=== PATIENT | female | born 1960 | race Caucasian/White ===

== ENCOUNTER 2017-08-11 14:05 | Observation (INO) | payer SELFPAY ==
[~2017-08-11] VITALS: Ht 162.6 cm; Wt 67.6 kg
[~2017-08-11 14:05] MED LIST: LISINOPRIL10 MG PO; MICROBID; PANTOPRAZOLE SO20 MG PO; PAXIL10 MG PO; SYNTHROID50 MCG PO
--- OUTSIDE RECORDS SUMMARY | 2017-08-11 14:08 | XMS REPORT | Clinical Summary ---
Author Author ARLETTE [facility] Address Unknown Phone Unavailable Care Team Providers Care Network Admin Name Role Phone PCP Unavailable Allergies Active Allergy Reactions Severity Noted Date Comments Corticotropin 08/18/2016 Pain in balls of feet Influenza Virus Vaccines 08/18/2016 Numbness lower ext Adhesive Rash Low 08/18/2016 Current Medications Prescription Sig. Disp. Refills Start End Date Status Date dimethyl fumarate Take 240 mg by mouth 2 Active (TECFIDERA) 240 mg CpDR (two) times daily. carBAMazepine (CARBATROL) Take 100 mg by mouth 2 Active 100 MG 12 hr capsule (two) times daily. xeusnziseg-agidwba-ttdvfg Take 1 capsule by mouth Active ne-codeine every 4 (four) hours as (RJGPLLZDZJ-UVHMSCP-VEJUR needed for Pain. INE-CODEINE) 43-10-926-40 mg capsule cyanocobalamin 1000 MCG Take 1,000 mcg by mouth Active tablet daily. folic acid (FOLVITE) 1 MG Take 1 mg by mouth daily. Active tablet levothyroxine (SYNTHROID, Take 112 mcg by mouth Active LEVOTHROID) 112 MCG Every morning on an empty tablet stomach. lisinopril Take 20 mg by mouth Active (PRINIVIL,ZESTRIL) 20 MG daily. tablet PARoxetine (PAXIL) 40 MG Take 40 mg by mouth every Active tablet morning. promethazine (PHENERGAN) Take 25 mg by mouth every Active 25 MG tablet 6 (six) hours as needed for Nausea. cholecalciferol, vitamin Take by mouth daily. Active D3, 2,000 unit Cap ferrous sulfate (IRON, Take 325 mg by mouth Active FERROUS SULFATE,) 325 (65 daily with breakfast. FE) MG tablet dalfampridine (AMPYRA) 10 Take 10 mg by mouth every Active mg Tb12 12 (twelve) hours. fingolimod 0.5 mg Cap Take 0.5 mg by mouth Active daily. gabapentin (NEURONTIN) Take 300 mg by mouth 3 Active 300 MG capsule (three) times daily. modafinil (PROVIGIL) 200 Take 200 mg by mouth as Active MG tablet needed. sulfamethoxazole-trimetho Take 0.5 tablets by mouth Active prim (BACTRIM DS) 800-160 2 (two) times daily. mg per tablet diazePAM (VALIUM) 10 MG Take 10 mg by mouth Active tablet daily. acetaminophen-codeine Take 1 tablet by mouth Active (TYLENOL #3) 300-30 mg every 4 (four) hours as per tablet needed for Pain. pantoprazole (PROTONIX) Take 40 mg by mouth 2 Active 40 MG tablet (two) times daily. acetaminophen-codeine Take 1 tablet by mouth Active (TYLENOL #4) 300-60 mg every 4 (four) hours as per tablet needed for Pain. Active Problems Problem Noted Date HNP (herniated nucleus pulposus), lumbar 08/23/2016 Encounters Date Type Specialty Care Team Description 08/23/2016 Hospital James Galeana MD HNP (herniated nucleus Encounter pulposus), lumbar 08/23/2016 Surgery James Galeana MD LAMINECTOMY,LUMBAR W/DISCECTOMY 08/22/2016 Anesthesia Juan Perry MD Event 08/18/2016 Hospital Pre-Admission Testing James Galeana MD Pre- op testing Encounter 08/17/2016 Orders Only Kinza Agarwal PA after 08/10/2016 Social History Tobacco Use Types Packs/Day Years Used Date Never Smoker Alcohol Use Drinks/Week oz/Week Comments No Sex Assigned at Date Recorded Not on file Last Filed Vital Signs Vital Sign Reading Time Taken Blood Pressure 147/64 08/23/2016 4:19 PM CDT Pulse 75 08/23/2016 4:19 PM CDT Temperature 37.1 C (98.7 F) 08/23/2016 4:19 PM CDT Respiratory Rate 18 08/23/2016 4:19 PM CDT Oxygen Saturation 97% 08/23/2016 4:19 PM CDT Inhaled Oxygen - - Concentration Weight 61.2 kg (135 lb) 08/23/2016 6:55 AM CDT Height 162.6 cm (5' 4.02") 08/23/2016 6:55 AM CDT Body Mass Index 23.16 08/23/2016 6:55 AM CDT Plan of Treatment Not on file Implants Implanted Type Area Compounding Assistant Device Expiration Model / Identifier Date Serial / Lot Matrix Floseal Hemo W/O Ndl 10 Cement/Preet Left: MARADIAGA:BIOSCI 2017 [id number] / [id number] - [id number] ler/Adhesi Spine / Implanted: Qty: 1 on 08/23/2016 by ve Lumbar [id number] James Galeana MD Procedures Procedure Name Priority Date/Time Associated Diagnosis Comments LAMINECTOMY,LUMBAR 08/23/2016 HNP (herniated nucleus W/DISCECTOMY 9:50 AM CDT pulposus), lumbar Special Needs (MICROSCOP E, AXIS DARWIN TABLE) after 08/10/2016 Results * XR spine lumbar 1 view (08/23/2016 10:33 AM) Specimen Performing Laboratory GE RIS Narrative FINAL REPORT Lateral lumbar spine one view shows marker projecting at the L4/5 disc level. Report was called to Dr. Galeana in the operating room who was in agreement. Signed: Kay Vega MD Report Verified Date/Time:08/23/2016 10:36:35 Reading Location: [facility] Radiology Reading Room Procedure Note Interface, External Ris In - 08/23/2016 10:38 AM CDT FINAL REPORT Lateral lumbar spine one view shows marker projecting at the L4/5 disc level. Report was called to Dr. Galeana in the operating room who was in agreement. Signed: Kay Vega MD Report Verified Date/Time: 08/23/2016 10:36:35 Reading Location: [facility] Radiology Reading Room * Tissue Exam (08/23/2016 10:26 AM) Component Value Ref Range Case Report Surgical Pathology Report Case: [id number] Authorizing Provider: James Galeana MD Ordering Provider: James Galeana MD Ordering Location: [facility] PERIOPER[facility] Collected: 08/23/2016 1026 SERVICES Pathologist: Sidney Ash MD Received: 08/23/2016 1104 Specimen: Intervertebral Disc, L L3-4 DIAGNOSIS VERTEBRAL COLUMN, INTERVERTEBRAL DISC, L3-4, DISCECTOMY: FIBROCARTILAGINOUS DEGENERATION Signing Pathologist Direct Phone Line: [phone] CPT Code(s) 01602; 28136 CLINICAL HISTORY Lumbar HNP SPECIMEN SOURCE Disc L3-4 GROSS DESCRIPTION Received in saline labeled "intervertebral disc" description "L3-4" is a 5.0 x 3.5 x 0.6 cm aggregate of pink-chopra to arredondo-white rubbery, fibrillar, cartilaginous and osseous tissue. . Sap Trainer sections are submitted in cassette A1 for decalcification. KAH/DB/pl MICROSCOPIC DESCRIPTION Performed Specimen Performing Laboratory Tissue - Intervertebral [facility] Disc [address] [place] [address] * ECG 12 lead (08/18/2016 3:38 PM) Specimen Performing Laboratory GE MUSE Narrative Ventricular Rate 68 BPM Atrial Rate 68 BPM P-R Interval 166 ms QRS Duration 74 ms Q-T Interval 376 ms QTC Calculation(Bazett) 399 ms P [place] 70 degrees R [place] 45 degrees T [place] 49 degrees Normal sinus rhythm Possible Left atrial enlargement Borderline ECG No previous ECGs available Confirmed by MD HERNANDEZ J. ALBERTO ([id number]) on 08/19/2016 11:17:54 AM Procedure Note Interface, External Ris In - 08/19/2016 11:17 AM CDT Ventricular Rate 68 BPM Atrial Rate 68 BPM P-R Interval 166 ms QRS Duration 74 ms Q-T Interval 376 ms QTC Calculation(Bazett) 399 ms P [place] 70 degrees R [place] 45 degrees T [place] 49 degrees Normal sinus rhythm Possible Left atrial enlargement Borderline ECG No previous ECGs available Confirmed by MD HERNANDEZ J. ALBERTO ([id number]) on 08/19/2016 11:17:54 AM * BUN and Creatinine (08/18/2016 3:36 PM) Component Value Ref Range BUN 12 7 - 21 mg/dL Creatinine 0.87Comment: Specimen slightly hemolyzed 0.57 - 1.25 mg/dL EGFR 67Comment: ESTIMATED GFR IS NOT ACCURATE mL/min/1.73 sq m CREATININE CLEARANCE IN PREDICTING GLOMERULAR FILTRATION RATE. ESTIMATED GFR IS NOT APPLICABLE FOR DIALYSIS PATIENTS. Specimen Performing Laboratory Blood [address] [address] * Hemoglobin (08/18/2016 3:36 PM) Component Value Ref Range Hemoglobin 9.0 (L) 12.0 - 15.0 GM/DL Specimen Performing Laboratory Blood [address] [address] * Electrolytes (08/18/2016 3:36 PM) Component Value Ref Range Sodium 135 (L) 136 - 145 meq/L Potassium 4.9Comment: Specimen slightly hemolyzed 3.5 - 5.1 meq/L Chloride 100 98 - 107 meq/L CO2 27 22 - 29 meq/L Specimen Performing Laboratory Blood [address] [address] after 08/10/2016
--- OUTSIDE RECORDS SUMMARY | 2017-08-11 14:08 | XMS REPORT ---
Author [facility] Address Unknown Phone Unavailable Care Team Providers Care Guest Services Agent Name Role Phone EDWARD GALEANA Unavailable Unavailable Problems This patient has no known problems. Allergies, Adverse Reactions, Alerts This patient has no known allergies or adverse reactions. Medications This patient has no known medications. Results Test Description Test Time Test Comments Text Results Atomic Results Result Comments TISSUE EXAM 2016-08-28 12:16:00 Surgical Pathology Report Case: [id number] Authorizing Provider: Edward Galeana MD Ordering Provider: Edward Galeana MD Ordering Location: [facility] PER[facility] Collected : 08/23/2016 1026 SERVICES Pathologist: Sidney Ash MD Received: 08/23/2016 1104 Specimen: Intervertebral Disc, LL3-4 VERTEBRAL COLUMN, INTERVERTEBRAL DISC, L3-4, DISCECTOMY:FIBROCARTILAGINOUS DEGENERATION Signing Pathologist Direct Phone Line : [phone] [id number] HNPDisc L3-4Received in saline labeled "intervertebral disc" description "L3-4" is a 5.0 x 3.5 x 0.6 cm aggregate of pink-chopra to arredondo-white rubbery, fibrillar, cartilaginous and osseous tissue. . Roastmaster sections are submitted in cassette A1 for decalcification. KAH/DB /plPerformed ELECTROLYTES 2016-08-18 16:17:00 SODIUM (BEAKER) (test vxhm=624) 135 meq/L 136-145 POTASSIUM (BEAKER) (test nwmk=675) 4.9 meq/L 3.5-5.1 Specimen slightly hemolyzed CHLORIDE (BEAKER) (test srrz=852) 100 meq/L 98-107 CO2 (BEAKER) (test rxod=269) 27 meq/L 22-29 BUN AND [id number] 16:17:00* Test Item Value Reference Range Comments BLOOD UREA NITROGEN (BEAKER) (test bdcq=645) 12 mg/dL 7-21 CREATININE (BEAKER) (test ccey=716) 0.87 mg/dL 0.57-1.25 Specimen slightly hemolyzed EGFR (BEAKER) (test gsbi=1314) 67 mL/min/1.73 sq m ESTIMATED GFR IS NOT ACCURATE CREATININE CLEARANCE IN PREDICTING GLOMERULAR FILTRATION RATE. ESTIMATED GFR IS NOT APPLICABLE FOR DIALYSIS PATIENTS. [id number] 16:02:00* Test Item Value Reference Range Comments HEMOGLOBIN (BEAKER) (test cnzp=640) 9.0 GM/DL 12.0-15.0
--- OUTSIDE RECORDS SUMMARY | 2017-08-11 14:09 | XMS REPORT | Clinical Summary ---
Author Author ARLETTE [facility] Address Unknown Phone Unavailable Care Team Providers Care Skirt Trimmer Name Role Phone PCP Unavailable Allergies Active [...] MG 12 hr capsule (two) times daily. kfysajydlg-gfnudzp-jxutcf Take 1 capsule by mouth Active ne-codeine every 4 (four) hours as (TJRHBBFTFI-MKKHSLY-ESOPP needed for Pain. INE-CODEINE) 29-05-461-40 mg capsule cyanocobalamin 1000 MCG Take 1,000 [...] Not on file Implants Implanted Type Area Sonoscope Operator Device Expiration Model / Identifier Date Serial / Lot Matrix Floseal Hemo W/O Ndl 10 Cement/Preet Left: MARADIAGA:BIOSCI 2017 [id number] / [id number] - [id number] ler/Adhesi Spine / Implanted: Qty: 1 on 08/23/2016 by ve Lumbar [id number] James Galeana MD Procedures Procedure Name Priority [...] MD Report Verified Date/Time:08/23/2016 10:36:35 Reading Location: [facility] Radiology Reading Room Procedure Note Interface, External Ris In - 08/23/2016 10:38 AM CDT FINAL REPORT Lateral lumbar spine one view shows marker projecting at the L4/5 disc level. Report was called to Dr. Galeana in the operating room who was in agreement. Signed: Kay Vega MD Report Verified Date/Time: 08/23/2016 10:36:35 Reading Location: [facility] Radiology Reading Room * Tissue Exam (08/23/2016 10:26 AM) Component Value Ref Range Case Report Surgical Pathology Report Case: [id number] Authorizing Provider: James Galeana MD Ordering Provider: James Galeana MD Ordering Location: [facility] PER[facility] Collected: 08/23/2016 1026 SERVICES Pathologist: Sidney Ash MD Received: 08/23/2016 1104 Specimen: Intervertebral Disc, L L3-4 DIAGNOSIS VERTEBRAL COLUMN, INTERVERTEBRAL DISC, L3-4, DISCECTOMY: FIBROCARTILAGINOUS DEGENERATION Signing Pathologist Direct Phone Line: [phone] CPT Code(s) 43562; 99251 CLINICAL HISTORY Lumbar HNP SPECIMEN SOURCE Disc L3-4 GROSS DESCRIPTION Received in saline labeled "intervertebral disc" description "L3-4" is a 5.0 x 3.5 x 0.6 cm aggregate of pink-chopra to arredondo-white rubbery, fibrillar, cartilaginous and osseous tissue. . Enterprise Application Analyst sections are submitted in cassette A1 for decalcification. KAH/DB/pl MICROSCOPIC DESCRIPTION Performed Specimen Performing Laboratory Tissue - Intervertebral [facility] Disc [address] [place] [address] * ECG 12 lead (08/18/2016 3:38 PM) Specimen Performing Laboratory GE MUSE Narrative Ventricular Rate 68 BPM Atrial Rate 68 BPM P-R Interval 166 ms QRS Duration 74 ms Q-T Interval 376 ms QTC Calculation(Bazett) 399 ms P [place] 70 degrees R [place] 45 degrees T [place] 49 degrees Normal sinus rhythm Possible Left atrial enlargement Borderline ECG No previous ECGs available Confirmed by MD HERNANDEZ J. ALBERTO ([id number]) on 08/19/2016 11:17:54 AM Procedure Note Interface, External Ris In - 08/19/2016 11:17 AM CDT Ventricular Rate 68 BPM Atrial Rate 68 BPM P-R Interval 166 ms QRS Duration 74 ms Q-T Interval 376 ms QTC Calculation(Bazett) 399 ms P [place] 70 degrees R [place] 45 degrees T [place] 49 degrees Normal sinus rhythm Possible Left [...] FOR DIALYSIS PATIENTS. Specimen Performing Laboratory Blood [address] [address] * Hemoglobin (08/18/2016 3:36 PM) Component Value Ref Range Hemoglobin 9.0 (L) 12.0 - 15.0 GM/DL Specimen Performing Laboratory Blood [address] [address] * Electrolytes (08/18/2016 3:36 PM) Component Value Ref Range Sodium 135 (L) 136 - 145 meq/L Potassium 4.9Comment: Specimen slightly hemolyzed 3.5 - 5.1 meq/L Chloride 100 98 - 107 meq/L CO2 27 22 - 29 meq/L Specimen Performing Laboratory Blood [address] [address] after 08/10/2016
[2017-08-11 14:58] LABS: BASOPHILS % 0.4 % (0.0-1.0); EOSINOPHILS # (AUTO) 0.1 (0.0-0.4); EOSINOPHILS % 3.1 % (0.0-6.0); LYMPHOCYTES # (AUTO) 0.6 (1.0-3.2); LYMPHOCYTES % 26.5 % (18.0-39.1); MEAN CORPUSCULAR HEMOGLOBIN 21.6 pg (28-32); MEAN CORPUSCULAR VOLUME 77.2 fL (81-99); MONOCYTES # (AUTO) 0.2 (0.2-0.8); MONOCYTES % 10.6 % (4.4-11.3); NEUTROPHILS # (AUTO) 1.3 (2.1-6.9); NEUTROPHILS % 59.4 % (38.7-80.0); PLATELET COUNT 167 x10e3/uL (140-360); RED BLOOD COUNT 2.68 x10e6/uL (3.6-5.1); RED CELL DISTRIBUTION WIDTH 19.4 % (11.7-14.4)
[2017-08-11] MEDS ORDERED: ACETAMIN/BUTALBITAL/CAFFEINE TAB PO ONE (15:00)
[2017-08-11 15:05] LABS: INR 0.99; PROTHROMBIN TIME 12.3 seconds (11.9-14.5)
[2017-08-11 15:06] LABS: HEMATOCRIT 20.7 % (34.2-44.1); HEMOGLOBIN 5.8 g/dL (12.0-16.0); PARTIAL THROMBOPLASTIN TIME 24.7 seconds (23.8-35.5)
[2017-08-11] MEDS ORDERED: ACETAMINOPHEN 325 MG TAB PO STA (15:06)
[2017-08-11] MEDS ORDERED: ACETAMIN/BUTALBITAL/CAFFEINE TAB PO PRN (15:15)
[2017-08-11] MEDS ORDERED: SODIUM CHLORIDE 0.9% 250ML 250 ML IV ONE (15:15)
[2017-08-11] MEDS ORDERED: SODIUM CHLORIDE FLUSH 10 ML SYR INJ PRN (15:15)
[2017-08-11] MEDS ORDERED: ONDANSETRON HCL INJ 2 MG/ML VIAL IV PRN (15:15)
[2017-08-11 15:17] LABS: ALANINE AMINOTRANSFERASE 10 IU/L (0-55); ALBUMIN 3.3 g/dL (3.5-5.0); ALBUMIN/GLOBULIN RATIO 0.9 (0.8-2.0); ALKALINE PHOSPHATASE 110 IU/L (40-150); ANION GAP 9.6 mmol/L (8-16); BLOOD UREA NITROGEN 6 mg/dL (7-26); BUN/CREATININE RATIO 10 (6-25); CALCIUM 8.7 mg/dL (8.4-10.2); CARBON DIOXIDE 30 mmol/L (22-29); CHLORIDE 103 mmol/L (98-107); CREATINE KINASE 56 IU/L (29-168); CREATININE, SERUM 0.63 mg/dL (0.57-1.11); EST GLOMERULAR FILTRATION RATE > 60 ML/MIN (60-); GLUCOSE 86 mg/dL (74-118); POTASSIUM 3.6 mmol/L (3.5-5.1); SODIUM 139 mmol/L (136-145)
--- OUTSIDE RECORDS SUMMARY | 2017-08-11 15:28 | XMS REPORT | Clinical Summary ---
Author Author ARLETTE [facility] Address Unknown Phone Unavailable Care Team Providers Care Electrician Wiring Name Role Phone PCP Unavailable Allergies Active [...] MG 12 hr capsule (two) times daily. cknwsmehke-opkxppj-etehev Take 1 capsule by mouth Active ne-codeine every 4 (four) hours as (WCCSTDPYAX-TOEHJOZ-ZFEFK needed for Pain. INE-CODEINE) 86-08-946-40 mg capsule cyanocobalamin 1000 MCG Take 1,000 [...] Not on file Implants Implanted Type Area Rotating Equipment Specialist Device Expiration Model / Identifier Date Serial / Lot Matrix Floseal Hemo W/O Ndl 10 Cement/Preet Left: MAARDIAGA:BIOSCI 2017 [id number] / [id number] - [id number] ler/Adhesi Spine / Implanted: Qty: 1 on 08/23/2016 by ve Lumbar [id number] James Galeana MD Procedures Procedure Name Priority [...] MD Report Verified Date/Time:08/23/2016 10:36:35 Reading Location: [facility] Radiology Reading Room Procedure Note Interface, External Ris In - 08/23/2016 10:38 AM CDT FINAL REPORT Lateral lumbar spine one view shows marker projecting at the L4/5 disc level. Report was called to Dr. Galeana in the operating room who was in agreement. Signed: Kay Vega MD Report Verified Date/Time: 08/23/2016 10:36:35 Reading Location: [facility] Radiology Reading Room * Tissue Exam (08/23/2016 10:26 AM) Component Value Ref Range Case Report Surgical Pathology Report Case: [id number] Authorizing Provider: James Galeana MD Ordering Provider: James Galeana MD Ordering Location: [facility] Collected: 08/23/2016 1026 SERVICES Pathologist: Sidney Ash MD Received: 08/23/2016 1104 Specimen: Intervertebral Disc, L L3-4 DIAGNOSIS VERTEBRAL COLUMN, INTERVERTEBRAL DISC, L3-4, DISCECTOMY: FIBROCARTILAGINOUS DEGENERATION Signing Pathologist Direct Phone Line: [phone] CPT Code(s) 33879; 89363 CLINICAL HISTORY Lumbar HNP SPECIMEN SOURCE Disc L3-4 GROSS DESCRIPTION Received in saline labeled "intervertebral disc" description "L3-4" is a 5.0 x 3.5 x 0.6 cm aggregate of pink-chopra to arredondo-white rubbery, fibrillar, cartilaginous and osseous tissue. . Flooring Installer sections are submitted in cassette A1 for decalcification. KAH/DB/pl MICROSCOPIC DESCRIPTION Performed Specimen Performing Laboratory Tissue - Intervertebral [facility] [address] [place] [address] * ECG 12 lead (08/18/2016 3:38 PM) Specimen Performing Laboratory GE MUSE Narrative Ventricular Rate 68 BPM Atrial Rate 68 BPM P-R Interval 166 ms QRS Duration 74 ms Q-T Interval 376 ms QTC Calculation(Bazett) 399 ms P [place] 70 degrees R [place] 45 degrees T [place] 49 degrees Normal sinus rhythm Possible Left atrial enlargement Borderline ECG No previous ECGs available Confirmed by MD HERNANDEZ J. ALBERTO ([id number]) on 08/19/2016 11:17:54 AM Procedure Note Interface, External Ris In - 08/19/2016 11:17 AM CDT Ventricular Rate 68 BPM Atrial Rate 68 BPM P-R Interval 166 ms QRS Duration 74 ms Q-T Interval 376 ms QTC Calculation(Bazett) 399 ms P [place] 70 degrees R [place] 45 degrees T [place] 49 degrees Normal sinus rhythm Possible Left [...] FOR DIALYSIS PATIENTS. Specimen Performing Laboratory Blood [address] [address] * Hemoglobin (08/18/2016 3:36 PM) Component Value Ref Range Hemoglobin 9.0 (L) 12.0 - 15.0 GM/DL Specimen Performing Laboratory Blood [address] [address] * Electrolytes (08/18/2016 3:36 PM) Component Value Ref Range Sodium 135 (L) 136 - 145 meq/L Potassium 4.9Comment: Specimen slightly hemolyzed 3.5 - 5.1 meq/L Chloride 100 98 - 107 meq/L CO2 27 22 - 29 meq/L Specimen Performing Laboratory Blood [address] [address] after 08/10/2016
[2017-08-11 15:48] LABS: ANISOCYTOSIS SLIGHT; HYPOCHROMASIA SLIGHT; MICROCYTOSIS SLIGHT; PLATELET ESTIMATE ADEQUATE; PLATELET MORPHOLOGY COMMENT FEW LARGE; RBC MORPHOLOGY COMMENT NORMAL
[2017-08-11 16:38] VITALS: BP 179/79
[2017-08-11 16:39] LABS: BILIRUBIN,URINE NEGATIVE (NEGATIVE); CLARITY,URINE HAZY (CLEAR); COLOR,URINE YELLOW (YELLOW); KETONES,URINE NEGATIVE (NEGATIVE); LEUKOCYTE ESTERASE ,URINE 1+ (NEGATIVE); NITRITE,URINE NEGATIVE (NEGATIVE); PROTEIN,URINE DIPSTICK NEGATIVE (NEGATIVE); URINE UROBILINOGEN 0.2 mg/dL (0.2 - 1)
[2017-08-11 16:43] VITALS: BP 179/79
[2017-08-11 16:50] LABS: BACTERIA,URINE FEW /HPF; RBC,URINE 0-5 /HPF (0-5)
[2017-08-11 16:51] LABS: EPITHELIAL CELLS,URINE MANY /LPF
[2017-08-11] MEDS ORDERED: NORCO 7.5-3251 EACH PO (17:35)
[2017-08-11] MEDS ORDERED: PROVIGIL200 MG (17:35)
[2017-08-11] MEDS ORDERED: CARBAMAZEPINE200 MG PO (17:35)
[2017-08-11] MEDS ORDERED: FOLIC ACID1 MG PO (17:35)
[2017-08-11] MEDS ORDERED: BUTALB-CAFF-AC1 EACH (17:35)
[2017-08-11] MEDS ORDERED: LISINOPRIL10 MG PO (17:35)
[2017-08-11] MEDS ORDERED: PAXIL40 MG (17:35)
[2017-08-11] MEDS ORDERED: GABAPENTIN300 MG PO (17:35)
[2017-08-11] MEDS ORDERED: MACROBID 100 M100 MG (17:35)
[2017-08-11] MEDS ORDERED: GILENYA0.5 MG (17:35)
[2017-08-11] MEDS ORDERED: ASPIR 8181 MG (17:35)
[2017-08-11] MEDS ORDERED: AMPYRA10 MG (17:35)
[2017-08-11] MEDS ORDERED: IRON159 MG (17:35)
[2017-08-11] MEDS ORDERED: SYNTHROID112 MCG PO (17:35)
[2017-08-11] MEDS ORDERED: PROMETHAZINE HC25 M1 PO (17:35)
[2017-08-11] MEDS ORDERED: VITAMIN B-121000 MC2 (17:35)
[2017-08-11] MEDS ORDERED: CAFFEINE PO PRN (17:45)
[2017-08-11] MEDS ORDERED: CODEINE PO PRN (17:45)
[2017-08-11] MEDS ORDERED: BUTALBITAL PO PRN (17:45)
[2017-08-11] MEDS ORDERED: ASPIRIN PO PRN (17:45)
[2017-08-11] MEDS: HYDROCODONE/APAP 7.5MG-325MG 1 EA TAB PO SCH (19:36)
[2017-08-11 19:49] VITALS: BP 179/79
[2017-08-11] MEDS ORDERED: SODIUM CHLORIDE 0.9% 250ML 250 ML ONE (19:57)
[2017-08-11 20:00] VITALS: BP 178/74
[2017-08-11] MEDS ORDERED: ACETAMINOPHEN 325 MG TAB PO SCH (20:00)
[2017-08-11] MEDS ORDERED: CLONIDINE HCL 0.1 MG TAB PO PRN (20:45)
[2017-08-11 21:00] VITALS: BP 178/74
[2017-08-11] MEDS: PROMETHAZINE HCL 25 MG TAB PO SCH (21:00)
[2017-08-11] MEDS: GABAPENTIN 300 MG CAP PO SCH (21:00)
[2017-08-11] MEDS: CARBAMAZEPINE 200 MG TAB PO SCH (21:00)
[2017-08-12] VITALS: BP 124/57
[2017-08-12 04:00] VITALS: BP 127/57
[2017-08-12] MEDS ORDERED: LEVOTHYROXINE SODIUM 112 MCG TAB PO SCH (06:00)
[2017-08-12 07:13] LABS: BASOPHILS % 0.9 % (0.0-1.0); EOSINOPHILS # (AUTO) 0.1 (0.0-0.4); EOSINOPHILS % 3.3 % (0.0-6.0); HEMATOCRIT 30.9 % (34.2-44.1); HEMOGLOBIN 9.5 g/dL (12.0-16.0); LYMPHOCYTES # (AUTO) 0.6 (1.0-3.2); MEAN CORPUSCULAR HEMOGLOBIN 24.4 pg (28-32); MEAN CORPUSCULAR HGB CONC 30.7 g/dL (31-35); MEAN CORPUSCULAR VOLUME 79.2 fL (81-99); MONOCYTES # (AUTO) 0.3 (0.2-0.8); MONOCYTES % 15.4 % (4.4-11.3); NEUTROPHILS # (AUTO) 1.1 (2.1-6.9); NEUTROPHILS % 51.4 % (38.7-80.0); PLATELET COUNT 136 x10e3/uL (140-360); RED CELL DISTRIBUTION WIDTH 18.1 % (11.7-14.4)
[2017-08-12 07:48] VITALS: BP 171/71
[2017-08-12] MEDS: HYDROCODONE/APAP 7.5MG-325MG 1 EA TAB PO SCH (08:06)
[2017-08-12] MEDS: GABAPENTIN 300 MG CAP PO SCH (09:00)
[2017-08-12] MEDS ORDERED: AMPYRA 10 MG PO SCH (09:00)
[2017-08-12] MEDS: PROMETHAZINE HCL 25 MG TAB PO SCH (09:00)
[2017-08-12] MEDS ORDERED: PROVIGIL 200 MG PO SCH (09:00)
[2017-08-12] MEDS ORDERED: FOLIC ACID 1 MG TAB PO SCH (09:00)
[2017-08-12] MEDS ORDERED: CYANOCOBALAMIN 1,000 MCG TAB PO SCH (09:00)
[2017-08-12] MEDS ORDERED: NITROFURANTOIN MACROCRYSTALS 100 MG CAP PO SCH (09:00)
[2017-08-12] MEDS ORDERED: FERROUS SULFATE 325 MG TAB PO SCH (09:00)
[2017-08-12] MEDS ORDERED: FERROUS SULFATE DRIED 65 MG PO SCH (09:00)
[2017-08-12] MEDS ORDERED: GILENYA 0.5 MG PO SCH (09:00)
[2017-08-12] MEDS ORDERED: ASPIRIN 81 MG CHEW TAB PO SCH (09:00)
[2017-08-12] MEDS ORDERED: PAROXETINE HCL 20 MG TAB PO SCH (09:00)
[2017-08-12] MEDS: CARBAMAZEPINE 200 MG TAB PO SCH (09:00)
[2017-08-12] MEDS ORDERED: FERROUS SULFATE DRIED 65 MG SCH (09:00)
[2017-08-12] MEDS ORDERED: LISINOPRIL 10 MG TAB PO SCH (09:00)
[2017-08-12 09:03] VITALS: BP 146/72
== END 2017-08-12 10:22 | disposition home or self-care (01) ==
LOC: ER 14:06 → ERHOLD 15:25 → IMCU 15:42
PROVIDERS: ADMIT Internal Medicine; ATTEND Internal Medicine
DX: D64.9 Anemia, unspecified (principal); I10 Essential (primary) hypertension; G35 Multiple sclerosis
CPT/HCPCS: 36430; P9016; 36415; 80053; 81001; 82270; 82550; 82553; 84484; 85025; 85610; 85730; 86850; 86900; 86920; 99284; G0378; J7050

== ENCOUNTER 2018-09-03 12:19 | Observation (INO) | payer OTHER ==
[~2018-09-03] VITALS: Ht 162.6 cm; Wt 56.7 kg
[~2018-09-03 12:19] MED LIST changes: +AMPYRA10 MG; +ASPIR 8181 MG; +BUTALB-CAFF-AC1 EACH; +CARBAMAZEPINE200 MG PO; +FOLIC ACID1 MG PO; +GABAPENTIN300 MG PO; +GILENYA0.5 MG; +IRON159 MG; +MACROBID 100 M100 MG; +NORCO 7.5-3251 EACH PO; +PAXIL40 MG; +PROMETHAZINE HC25 M1 PO; +PROVIGIL200 MG; +SYNTHROID112 MCG PO; +VITAMIN B-121000 MC2
--- OUTSIDE RECORDS SUMMARY | 2018-09-03 12:22 | XMS REPORT | Clinical Summary ---
Author Author ARLETTE [facility] Address Unknown Phone Unavailable Care Team Providers Care Straightening Machine Feeder Name Role Phone Dionne Liang PCP Allergies Comments Active Allergy Reactions Severity Noted Date Adhesive Rash Low 08/18/2016 Pain in balls of feet Corticotropin 08/18/2016 Numbness lower ext Influenza Virus Vaccines 08/18/2016 Medications End Date Status Medication Sig Dispensed Refills Start Date Active dimethyl fumarate Take 240 mg 0 (TECFIDERA) 240 mg CpDR by mouth 2 (two) times daily. Active carBAMazepine (CARBATROL) Take 100 mg 0 100 MG 12 hr capsule by mouth 2 (two) times daily. Active yiaebewnnc-xvccfsi-deoflp Take 1 0 ne-codeine capsule by (IJFKFQQWDX-SGRIHYB-IWPLW mouth every 4 INE-CODEINE) 87-95-078-40 (four) hours mg capsule as needed for Pain. Active cyanocobalamin 1000 MCG Take 1,000 0 tablet mcg by mouth daily. Active folic acid (FOLVITE) 1 MG Take 1 mg by 0 tablet mouth daily. Active levothyroxine (SYNTHROID, Take 112 mcg 0 LEVOTHROID) 112 MCG by mouth tablet Every morning on an empty stomach. Active lisinopril Take 20 mg by 0 (PRINIVIL,ZESTRIL) 20 MG mouth daily. tablet Active PARoxetine (PAXIL) 40 MG Take 40 mg by 0 tablet mouth every morning. Active promethazine (PHENERGAN) Take 25 mg by 0 25 MG tablet mouth every 6 (six) hours as needed for Nausea. Active cholecalciferol, vitamin Take by mouth 0 D3, 2,000 unit Cap daily. Active ferrous sulfate (IRON, Take 325 mg 0 FERROUS SULFATE,) 325 (65 by mouth FE) MG tablet daily with breakfast. Active dalfampridine (AMPYRA) 10 Take 10 mg by 0 mg Tb12 mouth every 12 (twelve) hours. Active fingolimod 0.5 mg Cap Take 0.5 mg 0 by mouth daily. Active gabapentin (NEURONTIN) Take 300 mg 0 300 MG capsule by mouth 3 (three) times daily. Active modafinil (PROVIGIL) 200 Take 200 mg 0 MG tablet by mouth as needed. Active sulfamethoxazole-trimetho Take 0.5 0 prim (BACTRIM DS) 800-160 tablets by mg per tablet mouth 2 (two) times daily. Active diazePAM (VALIUM) 10 MG Take 10 mg by 0 tablet mouth daily. Active acetaminophen-codeine Take 1 tablet 0 (TYLENOL #3) 300-30 mg by mouth per tablet every 4 (four) hours as needed for Pain. Active pantoprazole (PROTONIX) Take 40 mg by 0 40 MG tablet mouth 2 (two) times daily. Active acetaminophen-codeine Take 1 tablet 0 (TYLENOL #4) 300-60 mg by mouth per tablet every 4 (four) hours as needed for Pain. Active Problems Problem Noted Date HNP (herniated nucleus pulposus), lumbar 08/23/2016 Social History Date Tobacco Use Types Packs/Day Years Used Never Smoker Alcohol Use Drinks/Week oz/Week Comments No Sex Assigned at Date Recorded Not on file Industry Job Start Date Occupation Not on file Not on file Not on file Travel End Travel History Travel Start No recent travel history available. Last Filed Vital Signs Not on file Plan of Treatment Not on file Implants Device Identifier Shelf Expiration Date Model / Serial / Lot Implanted Type Area Manufactur er 10/27/2017 [id number] / / [id number] Matrix Floseal Hemo W/O Ndl 10 Cement/Preet Left: Spine MARADIAGA:BIO [id number] - [id number] ler/Adhesi Lumbar SCI Implanted: Qty: 1 on 08/23/2016 by James Moreau MD Results Not on fileafter 09/02/2017 Insurance Payer Benefit Subscriber ID Type Phone Address Plan / Group [facility] xxxxxxxxx HMO/POS CARE POS SELECT CHOICE Advance Directives For more information, please contact: [facility] [address] [place] [address] Date Inactivated Comments Code Status Date Activated 08/23/2016 7:52 PM Full Code 08/23/2016 7:38 AM This code status was determined by: Patient
--- NOTE | 2018-09-03 13:14 | NUR ---
PATIENT TO ROOM 7
--- NOTE | 2018-09-03 13:20 | NUR ---
PATIENT STRAIGHT CATH'D UNABLE TO OBTAIN ANY URINE
[2018-09-03] MEDS ORDERED: SODIUM CHLORIDE 0.9% 1000ML 1,000 ML IV STA (13:42)
[2018-09-03] MEDS ORDERED: CEFTRIAXONE SOD 1 GM/NS 50 ML 50 ML IV ONE (13:45)
[2018-09-03 14:31] LABS: BASOPHILS % 0.9 % (0.0-1.0); EOSINOPHILS # (AUTO) 0.1 (0.0-0.4); EOSINOPHILS % 2.5 % (0.0-6.0); HEMATOCRIT 39.5 % (34.2-44.1); HEMOGLOBIN 13.4 g/dL (12.0-16.0); LYMPHOCYTES # (AUTO) 0.9 (1.0-3.2); LYMPHOCYTES % 27.6 % (18.0-39.1); MEAN CORPUSCULAR HEMOGLOBIN 33.9 pg (28-32); MEAN CORPUSCULAR HGB CONC 33.9 g/dL (31-35); MONOCYTES # (AUTO) 0.4 (0.2-0.8); MONOCYTES % 12.4 % (4.4-11.3); NEUTROPHILS # (AUTO) 1.8 (2.1-6.9); NEUTROPHILS % 56.3 % (38.7-80.0); PLATELET COUNT 194 x10e3/uL (140-360); RED BLOOD COUNT 3.95 x10e6/uL (3.6-5.1); RED CELL DISTRIBUTION WIDTH 11.9 % (11.7-14.4)
[2018-09-03 14:44] LABS: ANION GAP 15.5 mmol/L (8-16); CALCIUM 9.7 mg/dL (8.4-10.2); CREATININE, SERUM 1.07 mg/dL (0.57-1.11); POTASSIUM 4.5 mmol/L (3.5-5.1)
[2018-09-03] MEDS ORDERED: KETOROLAC TROMETHAMINE 30 MG/ML VIAL IV NR (14:45)
[2018-09-03 15:24] LABS: CLARITY,URINE SL CLOUDY (CLEAR); COLOR,URINE YELLOW (YELLOW); KETONES,URINE NEGATIVE (NEGATIVE); LEUKOCYTE ESTERASE ,URINE NEGATIVE (NEGATIVE); NITRITE,URINE POSITIVE (NEGATIVE); PROTEIN,URINE DIPSTICK TRACE (NEGATIVE); URINE UROBILINOGEN 1 mg/dL (0.2 - 1)
[2018-09-03 15:25] LABS: BILIRUBIN,URINE NEGATIVE (NEGATIVE)
[2018-09-03] MEDS ORDERED: ONDANSETRON HCL INJ 2MG/ML 2ML 2 MG/ML VIAL IV STA (16:21)
[2018-09-03] MEDS ORDERED: MORPHINE SULFATE 2 MG/ML SYR 1ML IV STA (16:21)
[2018-09-03] MEDS ORDERED: MORPHINE SULFATE INJ 4 MG/ML INJ 1ML IV NR (16:30)
--- NOTE | 2018-09-03 17:16 | Diagnostic Imaging Report ---
EXAM: CT Abdomen and Pelvis WITH contrast INDICATION: Severe pain with UTI. COMPARISON: None. TECHNIQUE: Abdomen and pelvis were scanned utilizing a multidetector helical scanner from the lung base to the pubic symphysis after administration of IV contrast. Coronal and sagittal reformations were obtained. Routine protocol was performed. Scan was performed when during portal venous phase. IV CONTRAST: 100 cc Isovue-300 ORAL CONTRAST: Water RADIATION DOSE: Total DLP: 187.77 mGy*cm Estimated effective dose: (DLP x 0.015 x size factor) mSv COMPLICATIONS: None FINDINGS: LINES and TUBES: None. LOWER THORAX: Bibasilar dependent atelectasis. HEPATOBILIARY: No focal hepatic lesions. The common bile duct is prominent measuring 1.2 cm in the pancreatic head region on image 30 series 2. Mild central intrahepatic biliary dilatation. GALLBLADDER: No radio-opaque stones or sludge. No wall thickening. SPLEEN: No splenomegaly. PANCREAS: No focal masses or ductal dilatation. ADRENALS: No adrenal nodules KIDNEYS/URETERS: Kidneys enhance symmetrically. No hydronephrosis. 3.1 cm cyst in the lateral lower pole of the right kidney on image 43. No stones. GI TRACT: No abnormal distention, wall thickening, or evidence of bowel obstruction. Appendix is normal. PELVIC ORGANS/BLADDER: Unremarkable. LYMPH NODES: No lymphadenopathy. VESSELS: Atherosclerotic calcifications of the aorta and iliac arteries. PERITONEUM / RETROPERITONEUM: No free air or fluid. BONES: Avascular necrosis of the hips bilaterally. SOFT TISSUES: Unremarkable. IMPRESSION: 1. Diffuse dilatation of the common bile duct and mild central intrahepatic biliary dilatation of uncertain etiology, however, possible pathology in the distal CBD or ampullary region. Correlate clinically. This could be further evaluated with MRCP. Signed by: Dr. Latoya Perez M.D. on 09/03/2018 5:13 PM
--- OUTSIDE RECORDS SUMMARY | 2018-09-03 18:48 | XMS REPORT | Clinical Summary ---
Author Author ARLETTE [facility] Address Unknown Phone Unavailable Care Team Providers Care Market Manager Name Role Phone Dionne Liang PCP Allergies [...] by mouth 2 (two) times daily. Active cnqiqikcmk-dshqzlv-fgysnq Take 1 0 ne-codeine capsule by (CQQJGRKWKV-JNNXDSD-XJBNZ mouth every 4 INE-CODEINE) 23-30-549-40 (four) hours mg capsule as needed for [...] Lot Implanted Type Area Manufactur er 10/27/2017 [id number] / / [id number] Matrix Floseal Hemo W/O Ndl 10 Cement/Preet Left: Spine MARADIAGA:BIO [id number] - [id number] ler/Adhesi Lumbar SCI Implanted: Qty: 1 on 08/23/2016 by James Moreau MD Results Not on fileafter 09/02/2017 Insurance Payer Benefit Subscriber ID Type Phone Address Plan / Group [facility] xxxxxxxxx HMO/POS CARE POS SELECT CHOICE Advance Directives For more information, please contact: [facility] [address] [place] [address] Date Inactivated Comments Code Status Date Activated 08/23/2016 7:52 PM Full Code 08/23/2016 7:38 AM This code status was determined by: Patient
[2018-09-03] MEDS ORDERED: IOPAMIDOL 370 MG/ML 200 ML INFUS..BTL INJ ONE (19:12)
[2018-09-03] MEDS ORDERED: SODIUM CHLORIDE 0.9% 50ML 50 ML ONE (19:12)
[2018-09-03 20:00] VITALS: BP 130/81
[2018-09-03] MEDS: ONDANSETRON HCL INJ 2MG/ML 2ML 2 MG/ML VIAL IV PRN (20:51)
[2018-09-03] MEDS: HYDROMORPHONE 2MG/ML 2 MG/ML ML IV PRN (20:51)
[2018-09-03] MEDS: SODIUM CHLORIDE 0.9% 1000ML 1,000 ML IV SCH (20:57)
[2018-09-03] MEDS: METHYLPREDNISOLONE SOD SUCC 500 MG in SODIUM CHLORIDE 0.9% 100 ML IV SCH (20:57)
[2018-09-03 21:05] VITALS: BP 130/81
--- NOTE | 2018-09-03 22:46 | NUR ---
Patient arrived to floor at about 2044 from ER. The patient is A/O x4 with the vital signs with the normal parameter. at beside providing patient's history. The patient c/o of abdomen and lower back pain. The patient has a 25 years history of MS and is a high risk for fall. Bed alarm set on, non-skid on, bedside commode next to bed, bed set on low with side rails up x2. Patient is on clear liquid and will have MRCP tomorrow. Monitor patient's pain and fall safety.
[2018-09-03] MEDS: PIPER-TAZ 3.375 GM / NS 50ML IV SCH (23:19)
[2018-09-04] VITALS (7 sets, daily range): BP systolic 94–152; BP diastolic 53–71
[2018-09-04] MEDS: HYDROMORPHONE 2MG/ML 2 MG/ML ML IV PRN ×6 (00:48→23:30)
[2018-09-04] MEDS: ONDANSETRON HCL INJ 2MG/ML 2ML 2 MG/ML VIAL IV PRN ×3 (00:48→11:05)
[2018-09-04] MEDS: PIPER-TAZ 3.375 GM / NS 50ML IV SCH ×4 (05:14→23:15)
[2018-09-04] MEDS: SODIUM CHLORIDE 0.9% 1000ML 1,000 ML IV SCH ×3 (05:14→17:01)
[2018-09-04] MEDS ORDERED: BISACODYL 5 MG TAB EC PO PRN ×2 (07:00→07:15)
[2018-09-04 07:13] LABS: HEMATOCRIT 37.1 % (34.2-44.1); HEMOGLOBIN 11.8 g/dL (12.0-16.0); LYMPHOCYTES # (AUTO) 0.5 (1.0-3.2); MEAN CORPUSCULAR HGB CONC 31.8 g/dL (31-35); MEAN CORPUSCULAR VOLUME 103.6 fL (81-99); MONOCYTES % 1.6 % (4.4-11.3); NEUTROPHILS % 79.4 % (38.7-80.0); PLATELET COUNT 167 x10e3/uL (140-360); RED BLOOD COUNT 3.58 x10e6/uL (3.6-5.1); RED CELL DISTRIBUTION WIDTH 11.8 % (11.7-14.4)
[2018-09-04 07:28] LABS: ALANINE AMINOTRANSFERASE 6 IU/L (0-55); ALBUMIN 3.7 g/dL (3.5-5.0); ALBUMIN/GLOBULIN RATIO 1.3 (0.8-2.0); ALKALINE PHOSPHATASE 88 IU/L (40-150); AMYLASE 53 U/L (25-125); ANION GAP 12.7 mmol/L (8-16); BLOOD UREA NITROGEN 8 mg/dL (7-26); BUN/CREATININE RATIO 10 (6-25); CALCIUM 9.2 mg/dL (8.4-10.2); CARBON DIOXIDE 26 mmol/L (22-29); CHLORIDE 104 mmol/L (98-107); CREATININE, SERUM 0.83 mg/dL (0.57-1.11); EST GLOMERULAR FILTRATION RATE > 60 ML/MIN (60-); GLUCOSE 167 mg/dL (74-118); LIPASE 17 U/L (8-78); POTASSIUM 4.7 mmol/L (3.5-5.1); SODIUM 138 mmol/L (136-145)
--- NOTE | 2018-09-04 07:45 | NUR ---
RECEIVED PATIENT AWAKE SITTING UP IN BED NO SIGNS OF DISTRESS AT THIS TIME. CALL LIGHT IN REACH, BED LOW, WHEELS LOCKED, SIDE RAILS X2. WILL CONTINUE TO MONITOR.
[2018-09-04] MEDS ORDERED: METHYLPREDNISOLONE SOD SUCC 1,000 MG/8 ML VIAL IV SCH (09:00)
--- NOTE | 2018-09-04 11:00 | NUR ---
PATIENT A/O X3, EVEN RESPIRATIONS ON RA. BOWEL SOUNDS ACTIVE. SKIN INTACT, NO EDEMA. LEFT WRIST 20 GAUGE IV WITH NS @ 125 CC/HR. PATIENT AMBULATES WITH WALKER. ASSISTED PATIENT TO TOILET THIS MORNING. DILAUDID GIVEN FOR ABDOMINAL PAIN. VITAL SIGNS STABLE. BED LOW, WHEELS LOCKED, SIDE RAILS UP X2, CALL LIGHT IN REACH WILL CONTINUE TO MONITOR.
[2018-09-04] MEDS ORDERED: ONDANSETRON HCL 4 MG ORAL DISINTEGRATING TAB PO PRN (12:00)
--- NOTE | 2018-09-04 12:45 | History and Physical ---
REASON FOR ADMISSION: This patient is a 57-year-old female, who comes in with abdominal pain. HISTORY OF PRESENTING ILLNESS: Ms. Anna Pak with a history of multiple sclerosis, history of trigeminal neuralgia, was in usual state of health until the patient started to have abdominal pain about three months ago. The patient started with pain that was intractable last night, was seen by the primary care physician, Dr. Truong, urine was positive and the patient was started on Macrobid 100 mg twice a day, which was upped from the 50 mg which she takes usually. The patient abdominal pain was intractable, yesterday 02/06, mid abdomen and radiating to the back, came into the emergency room, was found to have dilated CBD. The patient is admitted for, 1. Abdominal pain. 2. CBD dilatation and pain. PAST MEDICAL HISTORY: History of vitamin B12 deficiency, history of multiple sclerosis, history of chronic pain syndrome, history of hypothyroidism, history of hypertension, history of chronic UTIs, history of depression, and history of chronic tension headaches. MEDICINES: Medications she takes at home are aspirin 81 mg daily, Fiorinal with Codeine for headaches, carbamazepine 200 mg 3 times a day for trigeminal neuralgia, vitamin B12 1000 mcg every day, ferrous sulfate 159 for iron-deficiency anemia, folic acid 1 mg daily, gabapentin 300 mg 3 times a day, hydrocodone 7.5/325 three times a day, levothyroxine 112 mcg daily, lisinopril 20 mg daily, modafinil 200 mg daily, nitrofurantoin at this time 100 mg twice a day, paroxetine 40 mg daily, and promethazine 25 mg 3 times a day p.r.n. PAST SURGICAL HISTORY: Includes history of shoulder surgery, back surgery, and also abdominal surgery of cyst removal from the ovary. SOCIAL HISTORY: No EtOH. No IV drug abuse. No history of smoking. ALLERGIES: NO DRUG ALLERGIES. REVIEW OF SYSTEMS: Negative for chest pain. No shortness of breath. Positive for nausea. No cough. Positive for constipation. No diarrhea. No diplopia. No blurry vision. No hematochezia. No hematemesis. Positive for abdominal pain. No jaundice noted by the patient or icterus noted by the patient. No rectal bleeding. Positive for fatigue. PHYSICAL EXAMINATION: VITAL SIGNS: Temperature is 97.1, pulse of 101, respirations of 18, blood pressure is 127/63, pulse oximetry of 92% on room air. HEENT: Normocephalic, atraumatic. There is no icterus present. CVS: S1, S2 normal. Regular rate and rhythm. ABDOMEN: Tender in the periumbilical area. Positive for backed up stool. EXTREMITIES: No clubbing, no cyanosis and/or no edema. LABORATORY VALUES: The patient's initial white count is 3.23, MCV 100, MCHC 33.9, no left shift present. Chemistry shows sodium of 134, potassium of 4.5, BUN was 11, creatinine of 1.079 with an estimated GFR of 52. Urine blood positive for nitrite. MICROBIOLOGY: Urine cultures are pending. IMAGING STUDIES: Abdominal CT shows diffuse dilatation of the common bile duct and mild central intrahepatic biliary dilatation of uncertain etiology, MRCP suggested. ASSESSMENT: 1. A 57-year-old lady with abdominal pain. 2. Dilatation of common bile duct. 3. History of multiple sclerosis. 4. Hypertension. 5. Hyperlipidemia. 6. Chronic pain syndrome. 7. Constipation. 8. Trigeminal neuralgia history. PLAN: 1. Plan is to do an MRCP today. If the MRCP is positive, we will need ERCP, we will recommend to GI number. 2. Check her comprehensive metabolic panel and total bilirubin levels to see for hepatic problems. 3. Continue monitoring the patient. IV fluids will be done. 4. We will give Dulcolax q.6 hours until constipation is relieved. Further recommendation and clinical course, the patient will probably need ERCP depending on the clinical course. MD DREA Montes De Oca/MODL /[id number]
--- NOTE | 2018-09-04 15:14 | NUR ---
Nutrition Screen Note RD Recommendation for Physician: -Rec ADAT to low fat diet Plan of Care: RD following, monitoring for tolerance and adequacy Nutrition reason for involvement: Nutrition Risk Trigger MST Primary Diagnose(s): Dilatation of common bile duct PMH: History of vitamin B12 deficiency, history of multiple sclerosis, history of chronic pain syndrome, history of hypothyroidism, history of hypertension, history of chronic UTIs, history of depression, and history of chronic tension headaches. Ht: 64in Wt: 125lb BMI: 21.5kg/m2 IBW: 120lb RD Assessment: (09/04) Chart reviewed. Labs and meds reviewed. 57yo F, who was admitted for abdominal pain started about 3 months ago. Abd/pel CT showed diffuse dilatation of the common bile duct and mild central intrahepatic biliary dilatation. Pending MRCP result. Visited pt in the room. Zofran was ordered for nausea. No vomiting episode reported. Dulcolax was also ordered for constipation x 3days. GLUCOSE AND SYRUP WEIGHER, pt had ~10lbs weight loss with UBW at ~135lbs and poor PO intake for 3 months. No physical sign of muscle/fat loss upon NFPA. Pt tolerated clear liquid diet for breakfast today. Will continue to monitor and follow. Current Diet: clear liquid Malnutrition Evaluation (09/04/2018) The patient does not meet criteria for a specified degree of malnutrition at this time. Will re-evaluate at follow-up as appropriate. Energy intake: <75% of estimated energy requirements for >3 months Weight loss: <7.5% in 3 months (Acute), not meeting criteria Fat loss: None upon NFPA Muscle loss: None upon NFPA Supporting Evidence: Fluid accumulation: N/A Functional Status: no changes Diet Education Needs Assessment: Diet education indicated, pt is not appropriate at this time. Nutrition Care Level: low Signed: Veronica Fregoso, MS, RD, LD
--- NOTE | 2018-09-04 17:10 | Diagnostic Imaging Report ---
EXAM: MRI of the abdomen without contrast with MRCP INDICATION: Biliary dilatation on CT examination. Concern for common duct stone or lesion of the ampulla. COMPARISON: Correlation with CT abdomen pelvis dated 09/03/2018. TECHNIQUE: Multiplanar and multisequence imaging was performed of the abdomen. T1 and T2-weighted images were obtained with and without contrast. T1-weighted in and eht-hv-qwhea scans were obtained. M.R.C.P. technique: Multiplanar, multisequence MRCP was performed, with sequences including coronal turbo spin-echo T1-weighted scans, H MRCP scans, coronal spin, coronal MPR 2, [facility], [facility] MRCP [facility]. Discussion: Examination somewhat limited due to images and interpretation by breathing motion artifact and lack of contrast enhancement. LOWER THORAX: Bibasilar dependent atelectasis. HEPATOBILIARY: No signal abnormality on the in and out of phase scans. No focal hepatic lesions. Minimal central intrahepatic biliary dilatation. The common bile duct is diffusely low dilated up to 1.2 cm, and tapers progressively distally, without filling defects or evidence of stricture. GALLBLADDER: No radio-opaque stones or sludge. No wall thickening. SPLEEN: No splenomegaly. PANCREAS: No focal masses. Mild prominence of the main pancreatic duct up to 5 mm in the pancreatic body. ADRENALS: No adrenal nodules KIDNEYS/URETERS: Kidneys enhance symmetrically. No hydronephrosis. 2.7 cm cyst in the lower pole of the right kidney. No stones. GI TRACT: No abnormal distention, wall thickening, or evidence of bowel obstruction. LYMPH NODES: No lymphadenopathy. VESSELS: Unremarkable. PERITONEUM / RETROPERITONEUM: No free air or fluid. BONES: Unremarkable. SOFT TISSUES: Unremarkable. IMPRESSION: Mild to moderate diffuse dilatation of the common bile duct without evidence of choledocholithiasis or stricture. No definite ampullary lesion identified, however, evaluation somewhat limited due to the lack of contrast motion artifact. Signed by: Dr. Latoya Perez M.D. on 09/04/2018 5:06 PM
[2018-09-04] MEDS: METHYLPREDNISOLONE SOD SUCC 500 MG in SODIUM CHLORIDE 0.9% 100 ML IV SCH (20:54)
[2018-09-05] VITALS: BP 115/69
[2018-09-05] MEDS: SODIUM CHLORIDE 0.9% 1000ML 1,000 ML IV SCH ×2 (00:57→12:09)
--- NOTE | 2018-09-05 02:29 | Consultation ---
DATE OF CONSULTATION: 09/04/2018 HISTORY OF PRESENT ILLNESS: This is a 57 years old, who presented to the hospital because of abdominal pain. Apparently, it has been going on for three months or so. The patient was seen by Dr. Truong and was given antibiotic for UTI. However, the patient is increasing and also radiating to the back. Her workup so far revealed that she has mild anemia with hemoglobin 11.8 with hydration. Liver enzymes and chemistry were okay. She did have a CAT scan of abdomen and pelvis, which shows diffuse dilatation of the common bile duct and mild central and intrahepatic dilatation etiology, this was followed by the MRCP that was done today, which again shows mild to moderate. The rest of the common bile duct without evidence of choledocholithiasis or strictures. There is no definite ampullary lesion identified. PAST MEDICAL HISTORY: Her medical problem today is significant for history of B12 deficiency, multiple sclerosis, history of chronic pain syndrome, hypothyroidism, hypertension, history of chronic UTIs, and history of depressions. MEDICATIONS ON ADMISSION: Including aspirin, Fiorinal with codeine, carbamazepine, vitamin B12, iron sulfate, folic acid, gabapentin, hydrocodone, levothyroxine, lisinopril, modafinil, nitrofurantoin, paroxetine, and promethazine. ALLERGIES: NONE. PAST SURGICAL HISTORY: Including shoulder surgery, back surgery, abdomen surgery. SOCIAL HISTORY: No alcohol use. FAMILY HISTORY: Noncontributory. REVIEW OF SYSTEMS: At this point, she denies any chest pain. Denies any shortness of breath. Denies any dysphagia, odynophagia. Denies any dysuria, hematuria, or any kind of syncopal episodes. PHYSICAL EXAMINATION: GENERAL: The patient is awake, alert, appears to be stable, not in acute distress at this point. VITAL SIGNS: Afebrile currently with stable vital signs. HEAD, EYES, EARS, NOSE AND THROAT: Normocephalic, atraumatic. Sclerae anicteric. NECK: Supple. HEART: Regular. ABDOMEN: Soft. There is mild tenderness in the epigastric area. There is no rebound or mass. EXTREMITIES: Demonstrates no clubbing. LAB VALUES: Again CBC shows hemoglobin of 11.8 and hematocrit of 37.1, WBC 2.53, and liver enzymes normal. CAT scan and MRCP as mentioned before. IMPRESSION: 1. Abdominal pain present at this point. The patient is to have dilatation of the bile duct on the CAT scan as well as MRCP, but there is no sign of strictures or stones. 2. History of multiple sclerosis. RECOMMENDATION: 1. Obtain a tumor marker as well as HIDA scan and follow clinically. 2. The best approach is probably to do endoscopic ultrasounds as an outpatient and if necessary, ERCP. This has been discussed with the patient and family in length and they understand the plan. Hero Mccartney MD DHD/MODL /[id number] cc: MD Bismark Serrano MD
[2018-09-05] MEDS: HYDROMORPHONE 2MG/ML 2 MG/ML ML IV PRN ×2 (03:43→12:57)
[2018-09-05 03:58] VITALS: BP 114/60
[2018-09-05] MEDS: PIPER-TAZ 3.375 GM / NS 50ML IV SCH ×2 (05:39→12:09)
[2018-09-05 07:10] LABS: HEMATOCRIT 30.3 % (34.2-44.1); HEMOGLOBIN 9.8 g/dL (12.0-16.0); LYMPHOCYTES # (AUTO) 0.4 (1.0-3.2); LYMPHOCYTES % 14.6 % (18.0-39.1); MEAN CORPUSCULAR HEMOGLOBIN 33.7 pg (28-32); MEAN CORPUSCULAR HGB CONC 32.3 g/dL (31-35); MEAN CORPUSCULAR VOLUME 104.1 fL (81-99); MONOCYTES # (AUTO) 0.1 (0.2-0.8); MONOCYTES % 2.5 % (4.4-11.3); NEUTROPHILS # (AUTO) 2.3 (2.1-6.9); NEUTROPHILS % 82.2 % (38.7-80.0); PLATELET COUNT 155 x10e3/uL (140-360); RED BLOOD COUNT 2.91 x10e6/uL (3.6-5.1)
--- NOTE | 2018-09-05 07:20 | NUR ---
RECEIVED PATIENT AWAKE RESTING IN BED. NO SIGNS OF DISTRESS. BED LOW, WHEELS LOCKED, SIDE RAILS X2, CALL LIGHT IN REACH. WILL CONTINUE TO MONITOR PATIENT.
[2018-09-05 07:35] LABS: ALANINE AMINOTRANSFERASE 7 IU/L (0-55); ALBUMIN/GLOBULIN RATIO 1.2 (0.8-2.0); ALKALINE PHOSPHATASE 72 IU/L (40-150); ANION GAP 9.5 mmol/L (8-16); BLOOD UREA NITROGEN 10 mg/dL (7-26); BUN/CREATININE RATIO 14 (6-25); CALCIUM 8.4 mg/dL (8.4-10.2); CARBON DIOXIDE 25 mmol/L (22-29); CHLORIDE 107 mmol/L (98-107); CREATININE, SERUM 0.74 mg/dL (0.57-1.11); EST GLOMERULAR FILTRATION RATE > 60 ML/MIN (60-); GLUCOSE 162 mg/dL (74-118); POTASSIUM 4.5 mmol/L (3.5-5.1); SODIUM 137 mmol/L (136-145)
[2018-09-05 07:58] VITALS: BP 110/56
--- NOTE | 2018-09-05 08:06 | Progress Note ---
DATE: SUBJECTIVE: The patient is a 57-year-old female, who comes in with abdominal pain, was found to have CT findings of fullness in the CBD and dilatation of the CBD. Consult with Dr. Mccartney was done. The patient is to have a HIDA scan today. No chest pain. Positive for abdominal pain. Positive for constipation. No rectal bleeding. No hematochezia. No hematemesis either. No icterus present. OBJECTIVE: VITAL SIGNS: Temperature is 97.5, has been afebrile for the last 48 hours, pulse of 110, respirations 16, blood pressure is 114/60, pulse oximeter of 92% on room air. HEENT: Normocephalic, atraumatic. No icterus present. CVS: S1, S2 normal. Regular rate and rhythm. ABDOMEN: Tender diffusely especially in the epigastric area. Positive for constipation. EXTREMITIES: No clubbing, no cyanosis and/or no edema. IMAGING STUDIES: From yesterday. The MRCP showed aozt-pm-fsajnorv diffuse dilatation of the common bile duct without evidence of choledocholithiasis or structure. No definite ampullary lesions were identified. LABORATORY VALUES: White count today is 2.53, hemoglobin of 11.8, hematocrit of 37.1, MCV high at 103.6, and MCH 33. The patient's chemistries show sodium of 138, potassium 4.7, BUN 8 and creatinine 0.83, glucose of 167. Urine has been positive. MICROBIOLOGY: Urine cultures show no growth in the last 18 to 24 hours. ASSESSMENT: 1. Abdominal pain. Etiology unclear at this time. Probable cause constipation. We will continue with Dulcolax. 2. Case has been discussed with Dr. Mccartney about the dilatation of CBD. Plan is to do a HIDA scan and follow the tracer. 3. Probable outpatient ultrasonic evaluation of the pancreatic head and possible ERCP later on. At this time, the patient is not obstructed. We will continue to monitor the patient and continue on her home medications. Further recommendation per clinical course. The patient has additional diagnosis of MS and hypertension and hyperlipidemia. DISPOSITION: Possible discharge today after HIDA scan and depending on the findings. MD DREA Montes De Oca/MODNorris /[id number]
[2018-09-05 09:47] VITALS: BP 110/56
[2018-09-05] MEDS ORDERED: BISACODYL 5 MG TAB EC PO PRN (10:30)
--- NOTE | 2018-09-05 10:31 | NUR ---
PATIENT LEFT TO NUCLEAR MEDICINE AT THIS TIME IN STABLE CONDITION.
--- NOTE | 2018-09-05 11:55 | NUR ---
PATIENT BACK FROM NUCLEAR MEDICINE IN STABLE CONDITION. BED LOW, WHEELS LOCKED, SIDE RAILS X2. CALL LIGHT IN REACH WILL CONTINUE TO MONITOR.
[2018-09-05 12:02] VITALS: BP 153/80
--- NOTE | 2018-09-05 13:02 | Diagnostic Imaging Report ---
Hepatobiliary Scan with Gallbladder Ejection Fraction Clinical information: Abdominal pain x 3 months Report: Following intravenous administration of 6.9 millicuries of Tc-99m mebrofenin, dynamic images of the abdomen in the anterior projection were obtained through 30 minutes. Sincalide (CCK analog) 1.2 micrograms was administered intravenously over 30 minutes with additional imaging for determination of gallbladder ejection fraction. Perfusion to the liver is normal. Extraction of tracer from the blood pool by the liver parenchyma is normal. Tracer is seen promptly within the biliary tract. The gallbladder begins to fill by 4 minutes post-injection of tracer and fills adequately. Tracer is seen in the small bowel by 18 minutes. The gallbladder ejection fraction with administration of sincalide is 95% (normal greater than 40%). Impression: 1. Filling of the gallbladder excludes the diagnosis of acute cystic duct obstruction/acute cholecystitis. 2. Normal gallbladder ejection fraction of 96% does not support the clinical diagnosis of chronic cholecystitis/gallbladder dyskinesia. Signed by: Dr. Valeria Pa M.D. on 09/05/2018 12:59 PM
--- NOTE | 2018-09-05 14:10 | NUR ---
REMOVED PATIENTS IV. CATHETER TIP INTACT AND PRESSURE DRESSING APPLIED.
--- NOTE | 2018-09-05 14:24 | NUR ---
PATIENT DISCHARGED FROM FACILITY. PATIENT GATHERED ALL PERSONAL BELONGINGS, DISCHARGE INSTRUCTIONS, FOLLOW UP INFORMATION. LEFT UNIT IN WHEELCHAIR AND WENT HOME VIA PRIVATE AUTO.
== END 2018-09-05 14:24 | disposition home or self-care (01) ==
LOC: ER 12:19 → ERHOLD 18:35 → MED/SURG 20:35
PROVIDERS: ADMIT Family Medicine; ATTEND Family Medicine
DX: K83.8 Other specified diseases of biliary tract (principal); R10.31 Right lower quadrant pain; R10.32 Left lower quadrant pain; I10 Essential (primary) hypertension; E03.9 Hypothyroidism, unspecified; G35 Multiple sclerosis; G50.0 Trigeminal neuralgia; E78.5 Hyperlipidemia, unspecified; G89.4 Chronic pain syndrome; K59.00 Constipation, unspecified; D50.9 Iron deficiency anemia, unspecified; E53.8 Deficiency of other specified B group vitamins; D70.9 Neutropenia, unspecified
CPT/HCPCS: 36415 ×3; 74177; 74181; 78227; 80048; 80053 ×2; 81001; 82105; 82150; 82378; 83690; 85025 ×3; 86301; 87086; 99284; A9537; G0378 ×3; J0696; J1170 ×3; J1885; J2270; J2405 ×2; J2543 ×3; J2930 ×2; J7030 ×3; J7050 ×2; Q0162; Q9967

== ENCOUNTER 2022-02-10 21:09 | Inpatient (IN) | payer BC, OTHER ==
[~2022-02-10] VITALS: Ht 162.6 cm; Wt 56.7 kg
[2022-02-10] MEDS ORDERED: TRAMADOL HCL 50 MG TAB PO ONE (21:45)
[2022-02-10] MEDS ORDERED: SODIUM CHLORIDE 0.9% 1000ML 1,000 ML IV ONE (22:15)
[2022-02-10 22:33] LABS: BASOPHILS # (AUTO) 0.1 (0.0-0.1); BASOPHILS % 0.7 % (0.0-1.0); EOSINOPHILS # (AUTO) 0.1 (0.0-0.4); EOSINOPHILS % 1.2 % (0.0-6.0); HEMATOCRIT 30.1 % (34.2-44.1); LYMPHOCYTES % 22.2 % (18.0-39.1); MEAN CORPUSCULAR HEMOGLOBIN 34.6 pg (28-32); MEAN CORPUSCULAR HGB CONC 33.2 g/dL (31-35); MEAN CORPUSCULAR VOLUME 104.2 fL (81-99); MONOCYTES # (AUTO) 1.2 (0.2-0.8); MONOCYTES % 13.2 % (4.4-11.3); NEUTROPHILS # (AUTO) 5.5 (2.1-6.9); NEUTROPHILS % 61.8 % (38.7-80.0); PLATELET COUNT 249 x10e3/uL (140-360); RED BLOOD COUNT 2.89 x10e6/uL (3.6-5.1); RED CELL DISTRIBUTION WIDTH 11.9 % (11.7-14.4)
[2022-02-10 22:45] LABS: INR 0.93; PROTHROMBIN TIME 13.3 seconds (11.9-14.5)
[2022-02-10 22:46] LABS: PARTIAL THROMBOPLASTIN TIME 30.1 seconds (23.8-35.5)
[2022-02-10 22:56] LABS: ALBUMIN 3.9 g/dL (3.5-5.0); ALBUMIN/GLOBULIN RATIO 1.3 (0.8-2.0); ANION GAP 17.1 mmol/L (8-16); CREATININE, SERUM 1.61 mg/dL (0.57-1.11); POTASSIUM 5.1 mmol/L (3.5-5.1)
[2022-02-11] VITALS (8 sets, daily range): BP systolic 91–130; BP diastolic 49–76
[2022-02-11] MEDS: Morphine 4mg INJECTION 4 MG/ML INJ IV PRN ×6 (00:01→20:57)
[2022-02-11] MEDS: ONDANSETRON HCL INJ 2MG/ML 2ML 2 MG/ML VIAL IV PRN ×3 (00:02→16:00)
[2022-02-11 09:05] LABS: ALBUMIN 3.4 g/dL (3.5-5.0); ALBUMIN/GLOBULIN RATIO 1.3 (0.8-2.0); ANION GAP 14.9 mmol/L (8-16); CALCIUM 8.8 mg/dL (8.4-10.2); CREATININE, SERUM 1.19 mg/dL (0.57-1.11); POTASSIUM 4.9 mmol/L (3.5-5.1)
[2022-02-11 09:38] LABS: BASOPHILS % 0.6 % (0.0-1.0); EOSINOPHILS # (AUTO) 0.1 (0.0-0.4); EOSINOPHILS % 2.3 % (0.0-6.0); HEMATOCRIT 27.7 % (34.2-44.1); HEMOGLOBIN 8.7 g/dL (12.0-16.0); LYMPHOCYTES # (AUTO) 1.5 (1.0-3.2); MEAN CORPUSCULAR HEMOGLOBIN 34.3 pg (28-32); MEAN CORPUSCULAR HGB CONC 31.4 g/dL (31-35); MEAN CORPUSCULAR VOLUME 109.1 fL (81-99); MONOCYTES # (AUTO) 0.8 (0.2-0.8); MONOCYTES % 14.6 % (4.4-11.3); NEUTROPHILS # (AUTO) 2.7 (2.1-6.9); NEUTROPHILS % 53.1 % (38.7-80.0); PLATELET COUNT 181 x10e3/uL (140-360); RED BLOOD COUNT 2.54 x10e6/uL (3.6-5.1); RED CELL DISTRIBUTION WIDTH 11.9 % (11.7-14.4)
[2022-02-11 11:38] LABS: BACTERIA,URINE MANY /HPF; EPITHELIAL CELLS,URINE MODERATE /LPF; TRANSITIONAL EPI CELLS,URINE FEW; WBC,URINE (MAN) >50 /HPF (0-5)
[2022-02-11 11:39] LABS: CLARITY,URINE CLEAR (CLEAR); COLOR,URINE YELLOW (YELLOW)
[2022-02-11 11:40] LABS: KETONES,URINE NEGATIVE (NEGATIVE); LEUKOCYTE ESTERASE ,URINE 2+ (NEGATIVE); NITRITE,URINE NEGATIVE (NEGATIVE); PROTEIN,URINE DIPSTICK NEGATIVE (NEGATIVE); URINE UROBILINOGEN 0.2 mg/dL (0.2 - 1)
[2022-02-11] MEDS: HYDROCODONE/APAP 7.5MG-325MG 1 EA TAB PO PRN ×2 (11:52→16:50)
[2022-02-11 12:07] LABS: FERRITIN 55.48 ng/mL (4.63-204.00)
[2022-02-11] MEDS ORDERED: ONDANSETRON HCL INJ 2MG/ML 2ML 2 MG/ML VIAL IV PRN (13:00)
[2022-02-11] MEDS: ENOXAPARIN SOD INJ 40 MG/0.4 ML SYR SC SCH (13:49)
[2022-02-11] MEDS: SODIUM FERRIC GLUCONATE COMPLX 125 MG in SODIUM CHLORIDE 0.9% 100 ML IV SCH (14:14)
[2022-02-11] MEDS ORDERED: FERROUS SULFATE 325 MG TAB PO SCH (17:00)
[2022-02-12] VITALS (8 sets, daily range): BP systolic 103–149; BP diastolic 52–64
[2022-02-12] MEDS: HYDROCODONE/APAP 7.5MG-325MG 1 EA TAB PO PRN ×3 (04:40→21:09)
[2022-02-12] MEDS: LEVOTHYROXINE SODIUM 112 MCG TAB PO SCH (06:42)
[2022-02-12 06:58] LABS: BASOPHILS % 0.5 % (0.0-1.0); EOSINOPHILS # (AUTO) 0.2 (0.0-0.4); EOSINOPHILS % 3.7 % (0.0-6.0); HEMATOCRIT 27.7 % (34.2-44.1); HEMOGLOBIN 8.6 g/dL (12.0-16.0); LYMPHOCYTES # (AUTO) 1.2 (1.0-3.2); LYMPHOCYTES % 19.6 % (18.0-39.1); MEAN CORPUSCULAR HEMOGLOBIN 34.3 pg (28-32); MEAN CORPUSCULAR VOLUME 110.4 fL (81-99); MONOCYTES # (AUTO) 0.7 (0.2-0.8); NEUTROPHILS # (AUTO) 3.9 (2.1-6.9); NEUTROPHILS % 63.6 % (38.7-80.0); PLATELET COUNT 170 x10e3/uL (140-360); RED BLOOD COUNT 2.51 x10e6/uL (3.6-5.1); RED CELL DISTRIBUTION WIDTH 11.7 % (11.7-14.4)
[2022-02-12] MEDS: Morphine 4mg INJECTION 4 MG/ML INJ IV PRN ×5 (07:07→22:18)
[2022-02-12 07:16] LABS: ANION GAP 15.3 mmol/L (8-16); CALCIUM 9.2 mg/dL (8.4-10.2); CREATININE, SERUM 1.03 mg/dL (0.57-1.11); POTASSIUM 5.3 mmol/L (3.5-5.1)
[2022-02-12] MEDS: ENOXAPARIN SOD INJ 40 MG/0.4 ML SYR SC SCH (09:12)
[2022-02-12] MEDS: SODIUM FERRIC GLUCONATE COMPLX 125 MG in SODIUM CHLORIDE 0.9% 100 ML IV SCH (14:32)
[2022-02-12] MEDS ORDERED: SODIUM CHLORIDE 0.9% 250ML 250 ML ONE (14:41)
[2022-02-12] MEDS ORDERED: POLYETHYLENE GLYCOL 3350 17 GM PACK PO PRN (16:45)
[2022-02-12] MEDS: DOCUSATE SODIUM 100 MG CAP PO SCH (17:06)
[2022-02-12] MEDS: SODIUM CHLORIDE 0.9% 1000ML 1,000 ML IV SCH (21:17)
[2022-02-13] VITALS (8 sets, daily range): BP systolic 119–155; BP diastolic 57–76
[2022-02-13] MEDS: Morphine 4mg INJECTION 4 MG/ML INJ IV PRN ×3 (02:28→11:00)
[2022-02-13] MEDS: HYDROCODONE/APAP 7.5MG-325MG 1 EA TAB PO PRN (03:47)
[2022-02-13] MEDS: ONDANSETRON HCL INJ 2MG/ML 2ML 2 MG/ML VIAL IV PRN ×2 (03:52→11:01)
[2022-02-13 05:54] LABS: BASOPHILS % 0.8 % (0.0-1.0); EOSINOPHILS # (AUTO) 0.2 (0.0-0.4); EOSINOPHILS % 3.8 % (0.0-6.0); HEMOGLOBIN 7.4 g/dL (12.0-16.0); LYMPHOCYTES # (AUTO) 1.1 (1.0-3.2); LYMPHOCYTES % 20.2 % (18.0-39.1); MEAN CORPUSCULAR HEMOGLOBIN 33.6 pg (28-32); MEAN CORPUSCULAR HGB CONC 32.2 g/dL (31-35); MEAN CORPUSCULAR VOLUME 104.5 fL (81-99); MONOCYTES # (AUTO) 0.6 (0.2-0.8); MONOCYTES % 11.7 % (4.4-11.3); NEUTROPHILS # (AUTO) 3.3 (2.1-6.9); NEUTROPHILS % 62.6 % (38.7-80.0); PLATELET COUNT 156 x10e3/uL (140-360); RED CELL DISTRIBUTION WIDTH 11.9 % (11.7-14.4)
[2022-02-13] MEDS: LEVOTHYROXINE SODIUM 112 MCG TAB PO SCH ×3 (06:00→06:08)
[2022-02-13 06:15] LABS: ANION GAP 12.4 mmol/L (8-16); CALCIUM 8.2 mg/dL (8.4-10.2); CREATININE, SERUM 0.7 mg/dL (0.57-1.11); POTASSIUM 4.4 mmol/L (3.5-5.1)
[2022-02-13] MEDS ORDERED: SODIUM CHLORIDE 0.9% 250ML 250 ML IV ONE (07:00)
[2022-02-13] MEDS: ASCORBIC ACID 500 MG TAB PO SCH ×2 (09:00→17:00)
[2022-02-13] MEDS: DOCUSATE SODIUM 100 MG CAP PO SCH (09:00)
[2022-02-13] MEDS: FERROUS SULFATE 325 MG TAB PO SCH ×2 (09:00→17:00)
[2022-02-13] MEDS: SODIUM CHLORIDE 0.9% 1000ML 1,000 ML IV SCH ×3 (09:10→21:21)
[2022-02-13] MEDS ORDERED: SODIUM CHLORIDE 0.9% 250ML 250 ML ONE (11:05)
[2022-02-13] MEDS ORDERED: MIDAZOLAM HCL 2 MG/2 ML VIAL ONE ×2 (12:46→13:32)
[2022-02-13] MEDS ORDERED: FENTANYL CITRATE/PF 100MCG/2 ML INJ ONE ×2 (13:32→16:02)
[2022-02-13] MEDS ORDERED: NALOXONE HCL INJ 0.4 MG/ML AMP IV PRN (15:45)
[2022-02-13] MEDS: HYDROMORPHONE 0.2MG/ML-SOD CHL 30ML PCA SYRINGE IV PRN (15:54)
[2022-02-13] MEDS ORDERED: POLYETHYLENE GLYCOL 3350 17 GM PACK PO PRN (17:30)
[2022-02-13] MEDS ORDERED: METOPROLOL TARTRATE INJ 1 MG/ML VIAL IV PRN (17:30)
[2022-02-13] MEDS: ACETAMINOPHEN 1000 MG/100 ML IV SCH ×2 (18:00→23:44)
[2022-02-13] MEDS ORDERED: TEMAZEPAM 15 MG CAP PO PRN (21:00)
[2022-02-14] VITALS (8 sets, daily range): BP systolic 105–141; BP diastolic 53–67
[2022-02-14 05:01] LABS: BASOPHILS % 0.5 % (0.0-1.0); EOSINOPHILS # (AUTO) 0.1 (0.0-0.4); EOSINOPHILS % 1.4 % (0.0-6.0); HEMATOCRIT 21.8 % (34.2-44.1); HEMOGLOBIN 7.3 g/dL (12.0-16.0); LYMPHOCYTES % 18.6 % (18.0-39.1); MEAN CORPUSCULAR HEMOGLOBIN 34.1 pg (28-32); MEAN CORPUSCULAR HGB CONC 33.5 g/dL (31-35); MEAN CORPUSCULAR VOLUME 101.9 fL (81-99); MONOCYTES # (AUTO) 0.5 (0.2-0.8); MONOCYTES % 9.5 % (4.4-11.3); NEUTROPHILS # (AUTO) 3.9 (2.1-6.9); NEUTROPHILS % 69.6 % (38.7-80.0); PLATELET COUNT 166 x10e3/uL (140-360); RED BLOOD COUNT 2.14 x10e6/uL (3.6-5.1); RED CELL DISTRIBUTION WIDTH 14.6 % (11.7-14.4)
[2022-02-14 05:25] LABS: CALCIUM 7.7 mg/dL (8.4-10.2); POTASSIUM 3.9 mmol/L (3.5-5.1)
[2022-02-14 05:46] LABS: THYROID STIMULATING HORMONE 0.637 uIU/mL (0.350-4.940)
[2022-02-14 05:52] LABS: ALBUMIN 2.6 g/dL (3.5-5.0); ALBUMIN/GLOBULIN RATIO 0.8 (0.8-2.0); ANION GAP 13.9 mmol/L (8-16); CHOL/HDL RATIO 3.3 (3.0-3.6); CREATININE, SERUM 0.71 mg/dL (0.57-1.11); MAGNESIUM 1.5 MG/DL (1.3-2.1); PHOSPHORUS 1.7 MG/DL (2.3-4.7)
[2022-02-14] MEDS ORDERED: ACETAMIN/BUTALBITAL/CAFFEINE TAB PO PRN (06:30)
[2022-02-14] MEDS ORDERED: MAGNESIUM SULFATE 2GM/50ML 50 ML IV ONE (07:00)
[2022-02-14] MEDS ORDERED: ACETAMIN/BUTALBITAL/CAFFEINE TAB PO ONE (07:00)
[2022-02-14] MEDS: ACETAMINOPHEN 1000 MG/100 ML IV SCH ×2 (07:00→11:38)
[2022-02-14] MEDS: RIVAROXABAN 10 MG TABLET PO SCH (08:00)
[2022-02-14] MEDS ORDERED: SODIUM CHLORIDE 0.9% 250ML 250 ML IV ONE (08:45)
[2022-02-14] MEDS ORDERED: MAGNESIUM SULF 1GRAM/DEXTROSE 100 ML IV ONE (09:00)
[2022-02-14] MEDS ORDERED: POTASSIUM PHOSPHATE 20 MM in SODIUM CHLORIDE 0.9% 250ML 250 ML IV ONE (10:00)
[2022-02-14] MEDS: DOCUSATE SODIUM 100 MG CAP PO SCH ×2 (10:39→17:48)
[2022-02-14] MEDS: FAMOTIDINE 20 MG TAB PO SCH ×2 (10:39→17:48)
[2022-02-14] MEDS: FERROUS SULFATE 325 MG TAB PO SCH ×2 (10:39→17:48)
[2022-02-14] MEDS: ASCORBIC ACID 500 MG TAB PO SCH ×2 (10:40→17:48)
[2022-02-14] MEDS: SODIUM CHLORIDE 0.9% 1000ML 1,000 ML IV SCH ×2 (11:45→22:23)
[2022-02-14] MEDS ORDERED: SODIUM CHLORIDE 0.9% 250ML 250 ML ONE ×2 (16:24→23:33)
[2022-02-14] MEDS: ACETAMINOPHEN 325 MG TAB PO PRN (18:55)
[2022-02-14] MEDS: HYDROMORPHONE 0.2MG/ML-SOD CHL 30ML PCA SYRINGE IV PRN (20:40)
[2022-02-15] VITALS (7 sets, daily range): BP systolic 126–145; BP diastolic 64–81
[2022-02-15] MEDS: ACETAMINOPHEN 325 MG TAB PO PRN (01:29)
[2022-02-15] MEDS: LEVOTHYROXINE SODIUM 112 MCG TAB PO SCH (05:03)
[2022-02-15 06:54] LABS: ANION GAP 13.6 mmol/L (8-16); BLOOD UREA NITROGEN < 5 mg/dL (7-26); CALCIUM 7.7 mg/dL (8.4-10.2); CARBON DIOXIDE 24 mmol/L (22-29); CHLORIDE 108 mmol/L (98-107); CREATININE, SERUM 0.58 mg/dL (0.57-1.11); GLUCOSE 128 mg/dL (74-118); MAGNESIUM 1.9 MG/DL (1.3-2.1); PHOSPHORUS 2.1 MG/DL (2.3-4.7); POTASSIUM 3.6 mmol/L (3.5-5.1); SODIUM 142 mmol/L (136-145)
[2022-02-15 06:56] LABS: BUN/CREATININE RATIO 9 (6-25)
[2022-02-15 07:13] LABS: BASOPHILS % 0.7 % (0.0-1.0); EOSINOPHILS # (AUTO) 0.2 (0.0-0.4); EOSINOPHILS % 3.6 % (0.0-6.0); HEMATOCRIT 24.9 % (34.2-44.1); HEMOGLOBIN 8.5 g/dL (12.0-16.0); LYMPHOCYTES # (AUTO) 0.8 (1.0-3.2); LYMPHOCYTES % 13.4 % (18.0-39.1); MEAN CORPUSCULAR HEMOGLOBIN 32.2 pg (28-32); MEAN CORPUSCULAR HGB CONC 34.1 g/dL (31-35); MEAN CORPUSCULAR VOLUME 94.3 fL (81-99); MONOCYTES # (AUTO) 0.6 (0.2-0.8); MONOCYTES % 10.5 % (4.4-11.3); NEUTROPHILS # (AUTO) 4.2 (2.1-6.9); NEUTROPHILS % 71.1 % (38.7-80.0); PLATELET COUNT 157 x10e3/uL (140-360); RED BLOOD COUNT 2.64 x10e6/uL (3.6-5.1); RED CELL DISTRIBUTION WIDTH 16.9 % (11.7-14.4)
[2022-02-15] MEDS: FERROUS SULFATE 325 MG TAB PO SCH ×2 (08:29→18:24)
[2022-02-15] MEDS: SODIUM CHLORIDE 0.9% 1000ML 1,000 ML IV SCH ×2 (08:29→18:06)
[2022-02-15] MEDS: FAMOTIDINE 20 MG TAB PO SCH ×2 (08:29→18:24)
[2022-02-15] MEDS: RIVAROXABAN 10 MG TABLET PO SCH (08:29)
[2022-02-15] MEDS: DOCUSATE SODIUM 100 MG CAP PO SCH ×2 (08:29→18:24)
[2022-02-15] MEDS: ONDANSETRON HCL INJ 2MG/ML 2ML 2 MG/ML VIAL IV PRN (08:30)
[2022-02-15] MEDS: ASCORBIC ACID 500 MG TAB PO SCH ×2 (08:30→18:24)
[2022-02-15] MEDS: HYDROCODONE/APAP 7.5MG-325MG 1 EA TAB PO PRN ×2 (13:30→19:58)
[2022-02-16] VITALS: BP 146/59
[2022-02-16] MEDS: HYDROCODONE/APAP 7.5MG-325MG 1 EA TAB PO PRN ×3 (03:13→15:54)
[2022-02-16 04:00] VITALS: BP 151/74
[2022-02-16] MEDS: LEVOTHYROXINE SODIUM 112 MCG TAB PO SCH (05:42)
[2022-02-16] MEDS: FERROUS SULFATE 325 MG TAB PO SCH (08:28)
[2022-02-16] MEDS: FAMOTIDINE 20 MG TAB PO SCH (08:28)
[2022-02-16] MEDS: RIVAROXABAN 10 MG TABLET PO SCH (08:28)
[2022-02-16] MEDS: ASCORBIC ACID 500 MG TAB PO SCH (08:28)
[2022-02-16] MEDS: DOCUSATE SODIUM 100 MG CAP PO SCH (08:28)
[2022-02-16 08:32] VITALS: BP 155/66
[2022-02-16 09:24] VITALS: BP 155/66
[2022-02-16] MEDS: ONDANSETRON HCL INJ 2MG/ML 2ML 2 MG/ML VIAL IV PRN (11:33)
[2022-02-16 11:37] VITALS: BP 151/58
[2022-02-16] MEDS ORDERED: XARELTO10 MG PO ×2 (15:19→15:40)
[2022-02-16 15:26] VITALS: BP 144/66
[2022-02-16] MEDS ORDERED: FAMOTIDINE20 MG PO (15:37)
[2022-02-16] MEDS ORDERED: Ferrous Sulfate PO (15:37)
[2022-02-16] MEDS ORDERED: DEXAMETHASONE SOD PHOS INJ 4 MG/ML SDV IV ONE (15:59)
[2022-02-16] MEDS ORDERED: ONDANSETRON HCL INJ 2MG/ML 2ML 2 MG/ML VIAL IV ONE (15:59)
[2022-02-16] MEDS ORDERED: DESFLURANE 240 ML BTL INH ONE (15:59)
[2022-02-16] MEDS ORDERED: PROPOFOL IV EMULSION 10 MG/ML 20 ML VIAL IV ONE (15:59)
[2022-02-16] MEDS ORDERED: ROCURONIUM BROMIDE 10 MG/ML 5ML VIAL IV ONE (15:59)
[2022-02-16] MEDS ORDERED: LIDOCAINE HCL 2% LOCAL INJ 5 ML SDV VIAL INJ ONE (15:59)
[2022-02-16] MEDS ORDERED: POVIDONE IODINE 0.05% 0.05 % ML PO ONE (15:59)
[2022-02-16] MEDS ORDERED: NEOSTIGMINE 1 MG/ML 10ML VIAL IV ONE (15:59)
== END 2022-02-16 16:00 | disposition home or self-care (01) | DRG 481 ==
LOC: ER 21:11 → ERHOLD 23:11 → MED/SURG 02-11 00:11
PROVIDERS: ADMIT Internal Medicine; ATTEND Internal Medicine
PROC: 0QS636Z Reposition Right Upper Femur with Intramedullary Internal Fixation Device, Percutaneous Approach (ICD-10-PCS; principal; 2022-02-10)
PROC: 0QU60KZ Supplement Right Upper Femur with Nonautologous Tissue Substitute, Open Approach (ICD-10-PCS; 2022-02-10)
PROC: 30233N1 Transfusion of Nonautologous Red Blood Cells into Peripheral Vein, Percutaneous Approach (ICD-10-PCS; 2022-02-10)
DX: S72.141A Displaced intertrochanteric fracture of right femur, initial encounter for closed fracture (principal); N39.0 Urinary tract infection, site not specified; Z16.24 Resistance to multiple antibiotics; W19.XXXA Unspecified fall, initial encounter; Y93.89 Activity, other specified; Y92.009 Unspecified place in unspecified non-institutional (private) residence as the place of occurrence of the external cause; D50.9 Iron deficiency anemia, unspecified; E03.9 Hypothyroidism, unspecified; Z87.440 Personal history of urinary (tract) infections; Z20.822 Contact with and (suspected) exposure to COVID-19; R01.1 Cardiac murmur, unspecified; B96.89 Other specified bacterial agents as the cause of diseases classified elsewhere; G35 Multiple sclerosis; Z74.09 Other reduced mobility; F32.A Depression, unspecified; G43.909 Migraine, unspecified, not intractable, without status migrainosus; E83.42 Hypomagnesemia; E83.39 Other disorders of phosphorus metabolism; I10 Essential (primary) hypertension
CPT/HCPCS: 36415; 36569; 71045; 76000; 80048; 80053; 80061; 81001; 82728; 83036; 83540; 83735; 84100; 84132; 84443; 84466; 85025; 85610; 85730; 86850; 86900; 86920; 87086; 87186; 93005; 94799; 99251; 99284; C1713; C1762; J0690; J1100; J1650; J2001; J2185; J2250; J2270; J2405; J2710; J2916; J3010; J3475; J7030; J7050; P9016

== ENCOUNTER 2022-02-24 13:31 | Outpatient (RCR) | payer BC ==
[~2022-02-24 13:31] MED LIST changes: +FAMOTIDINE20 MG PO; +Ferrous Sulfate PO; +XARELTO10 MG PO
== END 2022-02-27 ==
LOC: PT 13:31
PROVIDERS: ATTEND Specialist
DX: M25.551 Pain in right hip (principal); S72.141A Displaced intertrochanteric fracture of right femur, initial encounter for closed fracture

== ENCOUNTER 2022-05-19 13:00 | Outpatient (RCR) | payer BC | END 2022-05-30 | LOC: PT 13:00 | PROVIDERS: ATTEND Specialist | DX: S72.141D Displaced intertrochanteric fracture of right femur, subsequent encounter for closed fracture with routine healing (principal); M62.81 Muscle weakness (generalized); R26.2 Difficulty in walking, not elsewhere classified; Z91.81 History of falling ==

== ENCOUNTER 2022-06-09 13:00 | Outpatient (RCR) | payer BC | END 2022-06-27 | LOC: PT 13:00 | PROVIDERS: ATTEND Specialist | DX: S72.141D Displaced intertrochanteric fracture of right femur, subsequent encounter for closed fracture with routine healing (principal); M62.81 Muscle weakness (generalized); R26.2 Difficulty in walking, not elsewhere classified; Z91.81 History of falling ==